=== PATIENT | female | born 1955 | race African-American/Black ===

== ENCOUNTER 2021-09-13 21:39 | Observation (INO) | payer MEDICARE ==
--- NOTE | 2021-09-13 22:15 | Emergency Department Report ---
ED Neuro Deficit HPI - General Chief Complaint: Neuro Symptoms/Deficit Stated Complaint: Slurred Speech Time Seen by Provider: 09/13/21 21:52 Source: patient Mode of arrival: Ambulatory Limitations: No Limitations - History of Present Illness Initial Comments: Patient is a 66-year-old female who is presenting after what sounds like a TIA. Patient states she was at the grocery store and the checkout despatch clerk asked her what her phone number was. Patient was having difficulty speaking and she has slurred speech. Both the patient and the document restorer noticed the sound of her voice sounds abnormal. Patient states that by time the paramedics came the patient was feeling much improved and her speech patterns had normalized. Denies any focal neurological deficits chest pain shortness of breath cough cold congestion fevers or chills. Patient went to a [facility] and was given the option to take an ambulance or have her son drive her private vehicle to the nearest emergency department. At this time patient has no complaints - Related Data Home Medications: Home Medications Medication Instructions Recorded Confirmed Last Taken AtorvaSTATin [Lipitor] 40 mg PO QHS 09/13/21 09/13/21 09/13/21 20:00 Dabigatran [Pradaxa] 75 mg PO BID 09/13/21 09/13/21 09/13/21 20:00 Insulin Aspart [Insulin Aspart 30 unit SQ QAM&QHS 09/13/21 09/13/21 09/13/21 08:00 Flexpen] Metformin HCl [metFORMIN] 1,000 mg PO BID 09/13/21 09/13/21 09/13/21 08:00 Sotalol HCl [Sotalol] 60 mg PO BID 09/13/21 09/13/21 09/13/21 20:00 Allergies/Adverse Reactions: Allergies Allergy/AdvReac Type Severity Reaction Status Date / Time No Known Allergies Allergy Verified 01/20/21 04:07 ED Review of Systems ROS: Stated complaint: Slurred Speech Other details as noted in HPI Comment: All other systems reviewed and negative ED Past Medical Hx - Past Medical History Previous Medical History?: Yes Hx Hypertension: Yes Hx CVA: No Hx Heart Attack/AMI: No Hx Congestive Heart Failure: No Hx Diabetes: Yes Hx Pulmonary Embolism: No Hx GERD: No Hx Liver Disease: No Hx Renal Disease: No Hx Sickle Cell Disease: No Hx Arthritis: No Hx Headaches / Migraines: No Hx Seizures: No Hx Kidney Stones: No Hx Psychiatric Treatment: No Hx Asthma: No Hx COPD: No Hx Tuberculosis: No Hx Dementia: No Hx HIV: No Additional medical history: Hypothyroidism, pick disease, hyperlipidemia - Surgical History Past Surgical History?: Yes Hx Coronary Stent: No Hx Open Heart Surgery: No Hx Pacemaker: No Hx Internal Defibrillator: No Hx Cholecystectomy: No Hx Appendectomy: No Hx Breast Surgery: No Additional Surgical History: section x2 - Social History Smoking Status: Never Smoker Substance Use Type: None - Medications Home Medications: Home Medications Medication Instructions Recorded Confirmed Last Taken Type AtorvaSTATin [Lipitor] 40 mg PO QHS 09/13/21 09/13/21 09/13/21 20:00 History Dabigatran [Pradaxa] 75 mg PO BID 09/13/21 09/13/21 09/13/21 20:00 History Insulin Aspart [Insulin Aspart 30 unit SQ QAM&QHS 09/13/21 09/13/21 09/13/21 08:00 History Flexpen] Metformin HCl [metFORMIN] 1,000 mg PO BID 09/13/21 09/13/21 09/13/21 08:00 History Sotalol HCl [Sotalol] 60 mg PO BID 09/13/21 09/13/21 09/13/21 20:00 History ED Neuro Physical Exam - General Limitations: No Limitations General appearance: alert, in no apparent distress Suspected Stroke: No - Head Head exam: Present: atraumatic, normocephalic - Eye Eye exam: Present: normal appearance - ENT ENT exam: Present: mucous membranes moist - Neck Neck exam: Present: normal inspection - Respiratory Respiratory exam: Present: normal lung sounds bilaterally. Absent: respiratory distress, wheezes, rales, rhonchi - Cardiovascular Cardiovascular Exam: Present: regular rate, normal rhythm. Absent: systolic murmur, diastolic murmur, rubs, gallop - GI/Abdominal GI/Abdominal exam: Present: soft, normal bowel sounds. Absent: distended, tenderness, guarding, rebound - Extremities Exam Extremities exam: Present: normal inspection - Back Exam Back exam: Present: normal inspection - Neurological Exam Neurological exam: Present: alert, oriented X3 - NIHSS Assessment Interval: Baseline 1a. Level of Consciousness: alert/keenly responsive 1b. LOC Questions: answers both correctly 1c. LOC Commands: performs tasks correctly 2. Best Gaze: normal 3. Visual: no visual loss 4. Facial Palsy: normal symmetrical movement 5b. Motor Arm Right: no drift 5a. Motor Arm Left: no drift 6a. Motor Leg Left: no drift 6b. Motor Leg Right: no drift 7. Limb Ataxia: absent 8. Sensory: normal 9. Best Language: no aphasia 10. Dysarthria: normal 11. Extinction/Inattention: no abnormality Total Score: 0 Stroke Severity: No Stroke Symptoms - Psychiatric Psychiatric exam: Present: normal affect, normal mood - Skin Skin exam: Present: warm, dry, intact, normal color. Absent: rash ED Course Vital Signs 09/13/21 09/13/21 09/13/21 21:46 22:06 22:25 Temperature 98.5 F Pulse Rate 73 Respiratory 18 Rate Blood Pressure 148/64 O2 Sat by Pulse 97 98 99 Oximetry 09/13/21 09/13/21 09/13/21 22:39 23:00 23:30 Temperature Pulse Rate 70 69 67 Respiratory 19 19 15 Rate Blood Pressure 184/71 137/47 116/43 O2 Sat by Pulse 100 96 98 Oximetry 09/14/21 00:00 Temperature Pulse Rate 69 Respiratory 14 Rate Blood Pressure 130/51 O2 Sat by Pulse 99 Oximetry - Lab Data Result diagrams: 09/13/21 22:58 09/13/21 22:58 Lab Results 09/13/21 09/13/21 09/13/21 Range/Units 21:57 22:58 22:58 WBC 6.8 (4.5-11.0) K/mm3 RBC 4.34 (3.65-5.03) M/mm3 Hgb 12.8 (10.1-14.3) gm/dl Hct 39.1 (30.3-42.9) % MCV 90 (79-97) fl MCH 30 (28-32) pg MCHC 33 (30-34) % RDW 13.7 (13.2-15.2) % Plt Count 242 (140-440) K/mm3 Lymph % (Auto) 31.3 (13.4-35.0) % [place] % (Auto) 7.6 H (0.0-7.3) % Eos % (Auto) 3.0 (0.0-4.3) % Baso % (Auto) 0.7 (0.0-1.8) % Lymph # (Auto) 2.1 (1.2-5.4) K/mm3 [place] # (Auto) 0.5 (0.0-0.8) K/mm3 Eos # (Auto) 0.2 (0.0-0.4) K/mm3 Baso # (Auto) 0.0 (0.0-0.1) K/mm3 Seg Neutrophils % 57.4 (40.0-70.0) % Seg Neutrophils # 3.9 (1.8-7.7) K/mm3 PT (12.2-14.9) Sec. INR (0.87-1.13) APTT (24.2-36.6) Sec. Sodium 138 (137-145) mmol/L Potassium 4.4 (3.6-5.0) mmol/L Chloride 101.4 (98-107) mmol/L Carbon Dioxide 23 (22-30) mmol/L Anion Gap 18 mmol/L BUN 13 (7-17) mg/dL Creatinine 0.6 (0.6-1.2) mg/dL Estimated GFR > 60 ml/min BUN/Creatinine Ratio 22 % Glucose 180 H (65-100) mg/dL POC Glucose 182 H (70-105) mg/dL Calcium 9.5 (8.4-10.2) mg/dL Urine Color (Yellow) Urine Turbidity (Clear) Urine pH (5.0-7.0) Ur Specific [place] (1.003-1.030) Urine Protein (Negative) mg/dL Urine Glucose (UA) (Negative) mg/dL Urine Ketones (Negative) mg/dL Urine Blood (Negative) Urine Nitrite (Negative) Urine Bilirubin (Negative) Urine Urobilinogen (<2.0) mg/dL Ur Leukocyte Esterase (Negative) Urine WBC (Auto) (0.0-6.0) /HPF Urine RBC (Auto) (0.0-6.0) /HPF U Epithel Cells (Auto) (0-13.0) /HPF Urine Bacteria (Auto) (Negative) /HPF Hyaline Casts /LPF Urine Mucus /HPF 09/13/21 09/13/21 Range/Units 22:58 Unknown WBC (4.5-11.0) K/mm3 RBC (3.65-5.03) M/mm3 Hgb (10.1-14.3) gm/dl Hct (30.3-42.9) % MCV (79-97) fl MCH (28-32) pg MCHC (30-34) % RDW (13.2-15.2) % Plt Count (140-440) K/mm3 Lymph % (Auto) (13.4-35.0) % [place] % (Auto) (0.0-7.3) % Eos % (Auto) (0.0-4.3) % Baso % (Auto) (0.0-1.8) % Lymph # (Auto) (1.2-5.4) K/mm3 [place] # (Auto) (0.0-0.8) K/mm3 Eos # (Auto) (0.0-0.4) K/mm3 Baso # (Auto) (0.0-0.1) K/mm3 Seg Neutrophils % (40.0-70.0) % Seg Neutrophils # (1.8-7.7) K/mm3 PT 19.7 H (12.2-14.9) Sec. INR 1.51 H (0.87-1.13) APTT 62.4 H* (24.2-36.6) Sec. Sodium (137-145) mmol/L Potassium (3.6-5.0) mmol/L Chloride (98-107) mmol/L Carbon Dioxide (22-30) mmol/L Anion Gap mmol/L BUN (7-17) mg/dL Creatinine (0.6-1.2) mg/dL Estimated GFR ml/min BUN/Creatinine Ratio % Glucose (65-100) mg/dL POC Glucose (70-105) mg/dL Calcium (8.4-10.2) mg/dL Urine Color Yellow (Yellow) Urine Turbidity Clear (Clear) Urine pH 5.0 (5.0-7.0) Ur Specific [place] 1.018 (1.003-1.030) Urine Protein 100 mg/dl (Negative) mg/dL Urine Glucose (UA) Neg (Negative) mg/dL Urine Ketones Neg (Negative) mg/dL Urine Blood Neg (Negative) Urine Nitrite Neg (Negative) Urine Bilirubin Neg (Negative) Urine Urobilinogen 2.0 (<2.0) mg/dL Ur Leukocyte Esterase Tr (Negative) Urine WBC (Auto) 8.0 H (0.0-6.0) /HPF Urine RBC (Auto) 9.0 (0.0-6.0) /HPF U Epithel Cells (Auto) 2.0 (0-13.0) /HPF Urine Bacteria (Auto) 1+ (Negative) /HPF Hyaline Casts 2 /LPF Urine Mucus 1+ /HPF 09/13/21 22:17 Sinus rhythm with a rate of 73. [place] normal intervals normal. No ST segment elevation or depressions. Time interpretation 2213 - Radiology Data CT HEAD WITHOUT CONTRAST INDICATION / CLINICAL INFORMATION: transient neuro deficit. TECHNIQUE: All CT scans at this location are performed using CT dose reduction for ALARA by means of automated exposure control. COMPARISON: None available. FINDINGS: BRAIN PARENCHYMA: No acute intracranial hemorrhage. No evidence of recent infarct. No mass effect or midline shift. Periventricular and subcortical white matter hypoattenuation, compatible with chronic small vessel ischemic changes. There is focal remote infarct of the right parietal lobe. Additional focal area of hypoattenuation within the right frontal lobe near the vertex also likely reflect remote infarct. VENTRICULAR SYSTEM/EXTRA-AXIAL SPACES: Mild age-related cerebral atrophy. No e xtra-axial fluid collection. ORBITS: [place] lenses are absent. SKELETAL SYSTEM/SOFT TISSUES: Normal bones and soft tissues. PARANASAL SINUSES/MASTOID AIR CELLS: No significant abnormality. ADDITIONAL FINDINGS: None. IMPRESSION: 1. Focal area of hypoattenuation within the right frontal lobe near the vertex is favored to reflect remote infarct, though this potentially could be subacute in age. Recommend correlation with MRI. 2. Otherwise, no acute intracranial abnormality. 3. Chronic small vessel ischemic disease and remote infarct in the right parietal lobe. Signer Name: Yves Olson MD Signed: 09/13/2021 11:00 PM Workstation Name: [id number] XR chest 1V ap INDICATION / CLINICAL INFORMATION: tia. COMPARISON: CTA from 01/20/2021 FINDINGS: SUPPORT DEVICES: None. HEART /PULMONARY VASCULATURE: Cardiac enlargement with pulmonary vasculature congestion. LUNGS / PLEURA: Mild bibasilar interstitial edema. No focal airspace consolidation. No sizable pleural effusion. No pneumothorax. ADDITIONAL FINDINGS: No significant additional findings. IMPRESSION: CHF/volume overload with mild pulmonary edema. Cannot exclude superimposed pneumonia. Signer Name: Yves Olson MD Signed: 09/13/2021 10:48 PM Workstation Name: [id number] - Medical Decision Making Patient is a 66-year-old female who is presenting with symptoms of a TIA. Patient's deficits have completely resolved at this time. Patient will be admitted for observation status for carotid Doppler and echocardiogram. Blood pressure elevated on arrival but is improve spontaneously. Critical care attestation.: If time is entered above; I have spent that time in minutes in the direct care of this critically ill patient, excluding procedure time. ED Disposition Clinical Impression: TIA (transient ischemic attack) UTI (urinary tract infection) Qualifiers: Urinary tract infection type: site unspecified Hematuria presence: without hematuria Qualified Code(s): N39.0 - Urinary tract infection, site not specified Diabetes mellitus Qualifiers: Diabetes mellitus type: type 2 Disposition: 09 ADMITTED INPATIENT Is pt being admited?: Yes Does the pt Need Aspirin: No Condition: Stable Instructions: Diabetes Mellitus Type 2 in Adults (ED) Time of Disposition: 00:15
--- NOTE | 2021-09-13 22:52 | XRay Report ---
XR chest 1V ap INDICATION / CLINICAL INFORMATION: tia. COMPARISON: CTA from 01/20/2021 FINDINGS: SUPPORT DEVICES: None. HEART /PULMONARY VASCULATURE: Cardiac enlargement with pulmonary vasculature congestion. LUNGS / PLEURA: Mild bibasilar interstitial edema. No focal airspace consolidation. No sizable pleura l effusion. No pneumothorax. ADDITIONAL FINDINGS: No significant additional findings. IMPRESSION: CHF/volume overload with mild pulmonary edema. Cannot exclude superimposed pneumonia. Signer Name: Yves Olson MD Signed: 09/13/2021 10:48 PM Workstation Name: [id number]
[2021-09-13 23:03] LABS: Bacteria,Urine 1+ /HPF (Negative); Bilirubin,Urine NEG (Negative); Blood,Urine NEG (Negative); Color,Urine Yellow (Yellow); Hyaline Casts,Urine 2 /LPF; Mucus,Urine 1+ /HPF
--- NOTE | 2021-09-13 23:04 | Cat Scan Report ---
CT HEAD WITHOUT CONTRAST INDICATION / CLINICAL INFORMATION: transient neuro deficit. TECHNIQUE: All CT scans at this location are performed using CT dose reduction for ALARA by means of automated exposure control. COMPARISON: None available. FINDINGS: BRAIN PARENCHYMA: No acute intracranial hemorrhage. No evidence of recent infarct. No mass effect or midline shift. Periventricular and subcortical white matter hypoattenuation, compatible with chronic small vessel ischemic changes. There is focal remote infarct of the right parietal lobe. Additional f ocal area of hypoattenuation within the right frontal lobe near the vertex also likely reflect remote infarct. VENTRICULAR SYSTEM/EXTRA-AXIAL SPACES: Mild age-related cerebral atrophy. No extra-axial fluid collec tion. ORBITS: [place] lenses are absent. SKELETAL SYSTEM/SOFT TISSUES: Normal bones and soft tissues. PARANASAL SINUSES/MASTOID AIR CELLS: No significant abnormality. ADDITIONAL FINDINGS: None. IMPRESSION: 1. Focal area of hypoattenuation within the right frontal lobe near the vertex is favored to reflect remote infarct, though this potentially could be subacute in age. Recommend correlation with MRI. 2. Otherwise, no acute intracranial abnormality. 3. Chronic small vessel ischemic disease and remote infarct in the right parietal lobe. Signer Name: Yves Olson MD Signed: 09/13/2021 11:00 PM Workstation Name: [id number]
[2021-09-13 23:11] LABS: Basophils % (Auto) 0.7 % (0.0-1.8); Eosinophils # (Auto) 0.2 K/mm3 (0.0-0.4); Hematocrit 39.1 % (30.3-42.9); Hemoglobin 12.8 gm/dl (10.1-14.3); Lymphocytes # (Auto) 2.1 K/mm3 (1.2-5.4); Lymphocytes % (Auto) 31.3 % (13.4-35.0); Mean Corpuscular HGB Conc 33 % (30-34); Mean Corpuscular Volume 90 fl (79-97); Monocytes # (Auto) 0.5 K/mm3 (0.0-0.8); Monocytes % (Auto) 7.6 % (0.0-7.3); Platelet Count 242 K/mm3 (140-440); Red Blood Count 4.34 M/mm3 (3.65-5.03); Red Cell Distribution Width 13.7 % (13.2-15.2)
[2021-09-13 23:26] LABS: INR 1.51 (0.87-1.13)
[2021-09-13 23:38] LABS: Partial Thromboplastin Time 62.4 Sec. (24.2-36.6)
[2021-09-13 23:58] LABS: BUN/Creatinine Ratio 22; Blood Urea Nitrogen 13 mg/dL (7-17); Calcium 9.5 mg/dL (8.4-10.2); Hemolysis Index 20
[2021-09-14] MEDS ORDERED: NITROFURANTOIN MONOHYD/M-CRYST 100 MG CAP PO ONE (00:17)
[2021-09-14] MEDS ORDERED: SODIUM CHLORIDE 0.9% 1000 ML 1,000 ML IV SCH (01:00)
[2021-09-14] MEDS ORDERED: ALBUTEROL 2.5 MG/3 ML NEBU IH PRN (01:00)
[2021-09-14] MEDS ORDERED: HYDROmorphone 1 MG/1 ML INJ IV PRN (01:00)
[2021-09-14] MEDS ORDERED: ACETAMINOPHEN 325 MG TAB PO PRN (01:00)
[2021-09-14] MEDS ORDERED: ONDANSETRON 4 MG/2 ML INJ IV PRN (01:00)
[2021-09-14] MEDS ORDERED: DEXTROSE 50% IN WATER (25GM) 50 ML SYRINGE IV PRN (01:00)
[2021-09-14] MEDS ORDERED: MORPHINE 2 MG/1 ML INJ IV PRN (01:00)
--- NOTE | 2021-09-14 01:11 | History and Physical Report ---
History of Present Illness Date of examination: 09/14/21 Date of admission: 09/14/21 Chief complaint: Slurred speech History of present illness: 66-year-old with history of hypertension and and diabetes was brought to the emergency room because of TIA. Patient was at the grocery store and the checkout pharmacy stock clerk asked her what her phone number was. Patient was having difficulty speaking and she has slurred speech. Both the patient and the jewelry store manager noticed the sound of her voice sounds abnormal. Patient states that by time the paramedics came the patient was feeling much improved and her speech patterns had normalized. Denies any focal neurological deficits chest pain shortness of breath cough cold congestion fevers or chills. Patient went to a [facility] and was given the option to take an ambulance or have her son drive her private vehicle to the nearest emergency department. At this time patient has no complaints Patient's deficits have completely resolved at this time. Patient will be admitted for observation status for carotid Doppler and echocardiogram, MRI of the brain and MRA of the brain and neck and neurology evaluation Med rec is done Past History Past Medical History: diabetes (Hypothyroidism, pick disease, hyperlipidemia), hypertension Medications and Allergies Allergies Allergy/AdvReac Type Severity Reaction Status Date / Time No Known Allergies Allergy Verified 01/20/21 04:07 Home Medications Medication Instructions Recorded Confirmed Last Taken Type AtorvaSTATin [Lipitor] 40 mg PO QHS 09/13/21 09/13/21 09/13/21 20:00 History Dabigatran [Pradaxa] 75 mg PO BID 09/13/21 09/13/21 09/13/21 20:00 History Insulin Aspart [Insulin Aspart 30 unit SQ QAM&QHS 09/13/21 09/13/21 09/13/21 08:00 History Flexpen] Metformin HCl [metFORMIN] 1,000 mg PO BID 09/13/21 09/13/21 09/13/21 08:00 History Sotalol HCl [Sotalol] 60 mg PO BID 09/13/21 09/13/21 09/13/21 20:00 History Review of Systems All systems: negative Neurological: change in speech, other (Slurred speech) Exam - Constitutional Vitals: Temp Pulse Resp BP Pulse Ox 98.5 F 69 14 130/51 99 09/13/21 21:46 09/14/21 00:00 09/14/21 00:00 09/14/21 00:00 09/14/21 00:00 General appearance: Present: no acute distress, well-nourished - EENT Eyes: Present: PERRL ENT: hearing intact, clear oral mucosa - Neck Neck: Present: supple, normal ROM - Respiratory Respiratory effort: normal Respiratory: bilateral: CTA - Cardiovascular Heart Sounds: Present: S1 & S2. Absent: rub, click - Extremities Extremities: pulses symmetrical, No edema Peripheral Pulses: within normal limits - Abdominal General gastrointestinal: Present: soft, non-tender, non-distended, normal bowel sounds Female genitourinary: Present: normal - Integumentary Integumentary: Present: clear, warm, dry - Musculoskeletal Musculoskeletal: gait normal, strength equal bilaterally - Psychiatric Psychiatric: appropriate mood/affect, intact judgment & insight - Neurologic Neurologic: CNII-XII intact, moves all extremities Results - Labs CBC & Chem 7: 09/13/21 22:58 09/13/21 22:58 Labs: Laboratory Last Values WBC 6.8 K/mm3 (4.5-11.0) 09/13/21 22:58 RBC 4.34 M/mm3 (3.65-5.03) 09/13/21 22:58 Hgb 12.8 gm/dl (10.1-14.3) 09/13/21 22:58 Hct 39.1 % (30.3-42.9) 09/13/21 22:58 MCV 90 fl (79-97) 09/13/21 22:58 MCH 30 pg (28-32) 09/13/21 22:58 MCHC 33 % (30-34) 09/13/21 22:58 RDW 13.7 % (13.2-15.2) 09/13/21 22:58 Plt Count 242 K/mm3 (140-440) 09/13/21 22:58 Lymph % (Auto) 31.3 % (13.4-35.0) 09/13/21 22:58 [place] % (Auto) 7.6 % (0.0-7.3) H 09/13/21 22:58 Eos % (Auto) 3.0 % (0.0-4.3) 09/13/21 22:58 Baso % (Auto) 0.7 % (0.0-1.8) 09/13/21 22:58 Lymph # (Auto) 2.1 K/mm3 (1.2-5.4) 09/13/21 22:58 [place] # (Auto) 0.5 K/mm3 (0.0-0.8) 09/13/21 22:58 Eos # (Auto) 0.2 K/mm3 (0.0-0.4) 09/13/21 22:58 Baso # (Auto) 0.0 K/mm3 (0.0-0.1) 09/13/21 22:58 Seg Neutrophils % 57.4 % (40.0-70.0) 09/13/21 22:58 Seg Neutrophils # 3.9 K/mm3 (1.8-7.7) 09/13/21 22:58 PT 19.7 Sec. (12.2-14.9) H 09/13/21 22:58 INR 1.51 (0.87-1.13) H 09/13/21 22:58 APTT 62.4 Sec. (24.2-36.6) H* 09/13/21 22:58 Sodium 138 mmol/L (137-145) 09/13/21 22:58 Potassium 4.4 mmol/L (3.6-5.0) 09/13/21 22:58 Chloride 101.4 mmol/L (98-107) 09/13/21 22:58 Carbon Dioxide 23 mmol/L (22-30) 09/13/21 22:58 Anion Gap 18 mmol/L 09/13/21 22:58 BUN 13 mg/dL (7-17) 09/13/21 22:58 Creatinine 0.6 mg/dL (0.6-1.2) 09/13/21 22:58 Estimated GFR > 60 ml/min 09/13/21 22:58 BUN/Creatinine Ratio 22 % 09/13/21 22:58 Glucose 180 mg/dL (65-100) H 09/13/21 22:58 POC Glucose 182 mg/dL (70-105) H 09/13/21 21:57 Calcium 9.5 mg/dL (8.4-10.2) 09/13/21 22:58 Urine Color Yellow (Yellow) 09/13/21 Unknown Urine Turbidity Clear (Clear) 09/13/21 Unknown Urine pH 5.0 (5.0-7.0) 09/13/21 Unknown Ur Specific [place] 1.018 (1.003-1.030) 09/13/21 Unknown Urine Protein 100 mg/dl mg/dL (Negative) 09/13/21 Unknown Urine Glucose (UA) Neg mg/dL (Negative) 09/13/21 Unknown Urine Ketones Neg mg/dL (Negative) 09/13/21 Unknown Urine Blood Neg (Negative) 09/13/21 Unknown Urine Nitrite Neg (Negative) 09/13/21 Unknown Urine Bilirubin Neg (Negative) 09/13/21 Unknown Urine Urobilinogen 2.0 mg/dL (<2.0) 09/13/21 Unknown Ur Leukocyte Esterase Tr (Negative) 09/13/21 Unknown Urine WBC (Auto) 8.0 /HPF (0.0-6.0) H 09/13/21 Unknown Urine RBC (Auto) 9.0 /HPF (0.0-6.0) 09/13/21 Unknown U Epithel Cells (Auto) 2.0 /HPF (0-13.0) 09/13/21 Unknown Urine Bacteria (Auto) 1+ /HPF (Negative) 09/13/21 Unknown Hyaline Casts 2 /LPF 09/13/21 Unknown Urine Mucus 1+ /HPF 09/13/21 Unknown - Imaging and Cardiology CT Scan - head: report reviewed Assessment and Plan VTE prophylaxis?: Chemical Plan of care discussed with patient/family: Yes - Patient Problems (1) TIA (transient ischemic attack) Status: Acute Plan to address problem: Admit the patient to the medical telemetry. NPO. Aspirin 81 mg p.o. daily. Lipitor 80 mg p.o. daily. Pradaxa 75 mg p.o. twice daily. PT OT any speech evaluation. MRI of the brain and MRA of the brain and neck with and without contrast. Neurology evaluation and echocardiogram (2) A-fib Status: Acute Plan to address problem: Stable. Patient is on Pradaxa 75 mg p.o. twice daily. Sotalol 60 mg p.o. twice daily. echocardiogram. Outpatient follow-up with cardiology (3) Diabetes mellitus Status: Chronic Qualifiers: Diabetes mellitus type: type 2 Plan to address problem: Humalog insulin sliding scale with moderate dose coverage Accu-Chek before meals and at bedtime. Diabetic education. We will continue the home medication (4) Hypertension Status: Chronic Plan to address problem: Sotalol 60 mg p.o. twice daily. We will monitor the blood pressure closely (5) Hypothyroidism Status: Acute Plan to address problem: Stable. We will continue the home medication (6) DVT prophylaxis Status: Acute Plan to address problem: Pradaxa 75 mg p.o. twice daily for the DVT prophylaxis. Pepcid 20 mg IV every 12 hours for GI prophylaxis. Patient is a full code
[2021-09-14 01:44] LABS: Chol/HDL Ratio 4.28 %
[2021-09-14] MEDS: INSULIN LISPRO 100 UNIT/ML SUB-Q SCH ×3 (06:56→18:01)
[2021-09-14] MEDS: IPRATROPIUM/ALBUTEROL SULFATE 3 ML AMPUL.NEB IH SCH ×4 (08:50→21:23)
[2021-09-14] MEDS ORDERED: NON-FORMULARY EACH (Sotalol Hcl [Sotalol] 120 MG Tablet) PO SCH (10:00)
[2021-09-14] MEDS ORDERED: LORazepam 2 MG/ML VIAL IV NR (10:30)
[2021-09-14] MEDS: FAMOTIDINE 20 MG/2 ML INJ IV SCH ×2 (10:40→21:12)
--- NOTE | 2021-09-14 11:03 | Consultation ---
History of Present Illness Consult date: 09/14/21 Reason for Consult: slured speech yesterday 8 pm History of present illness: Slurred speech History of present illness: 66-year-old with history of hypertension and and diabetes was brought to the emergency room because of TIA. Patient was at the grocery store and the checkout supervisor telephone clerks asked her what her phone number was. Patient was having difficulty speaking and she has slurred speech. Both the patient and the traveling storekeeper noticed the sound of her voice sounds abnormal. Patient states that by time the paramedics came the patient was feeling much improved and her speech patterns had normalized. Denies any focal neurological deficits chest pain shortness of breath cough cold congestion fevers or chills. Patient went to a [facility] and was given the option to take an ambulance or have her son drive her private vehicle to the nearest emergency department. At this time patient has no complaints Patient's deficits have completely resolved at this time. Patient was admitted for observation status for carotid Doppler and echocardiogram, MRI of the brain and MRA of the brain and neck pt. is with hx of AF on pradexa taking her medication daily she is on ASA 81 mg daily , she is taking her lipitor intermittently no smoking hx on recreational drug nor drinking CT brain in ER is remarkable for right Frontal hypo-attenuation MRI brain is pending -CTA brain and neck not done yesterday-- will order Past History Past Medical History: diabetes (Hypothyroidism, pick disease, hyperlipidemia), hypertension Medications and Allergies Allergies Allergy/AdvReac Type Severity Reaction Status Date / Time No Known Allergies Allergy Verified 01/20/21 04:07 Home Medications Medication Instructions Recorded Confirmed Last Taken Type AtorvaSTATin [Lipitor] 40 mg PO QHS 09/13/21 09/13/21 09/13/21 20:00 History Dabigatran [Pradaxa] 75 mg PO BID 09/13/21 09/13/21 09/13/21 20:00 History Insulin Aspart [Insulin Aspart 30 unit SQ QAM&QHS 09/13/21 09/13/21 09/13/21 08:00 History Flexpen] Metformin HCl [metFORMIN] 1,000 mg PO BID 09/13/21 09/13/21 09/13/21 08:00 History Sotalol HCl [Sotalol] 60 mg PO BID 09/13/21 09/13/21 09/13/21 20:00 History Review of Systems All systems: negative Neurological: change in speech, other (Slurred speech) Past History Past Medical History: diabetes (Hypothyroidism, pick disease, hyperlipidemia), hypertension Medications and Allergies Allergies Allergy/AdvReac Type Severity Reaction Status Date / Time No Known Allergies Allergy Verified 01/20/21 04:07 Home Medications Medication Instructions Recorded Confirmed Last Taken Type AtorvaSTATin [Lipitor] 40 mg PO QHS 09/13/21 09/13/21 09/13/21 20:00 History Dabigatran [Pradaxa] 75 mg PO BID 09/13/21 09/13/21 09/13/21 20:00 History Insulin Aspart [Insulin Aspart 30 unit SQ QAM&QHS 09/13/21 09/13/21 09/13/21 08:00 History Flexpen] Metformin HCl [metFORMIN] 1,000 mg PO BID 09/13/21 09/13/21 09/13/21 08:00 History Sotalol HCl [Sotalol] 60 mg PO BID 09/13/21 09/13/21 09/13/21 20:00 History Active Meds: Active Medications Acetaminophen (Acetaminophen 325 Mg Tab) 650 mg PO Q4H PRN PRN Reason: Pain MILD(1-3)/Fever >100.5/FLORES Albuterol (Albuterol 2.5 Mg/3 Ml Nebu) 2.5 mg IH Q4HRT PRN PRN Reason: Shortness Of Breath Albuterol/Ipratropium (Ipratropium/Albuterol Sulfate 3 Ml Ampul.Neb) 1 ampul IH Q6HRT LADONNA Last Admin: 09/14/21 08:50 Dose: 1 ampul Documented by: Aspirin (Aspirin 81 Mg Tab Chew) 81 mg PO QDAY [facility] Atorvastatin Calcium (Atorvastatin 40 Mg Tab) 80 mg PO QHS [facility] Dabigatran (Dabigatran 75 Mg Cap) 75 mg PO BID LADONNA; Protocol Dextrose (Dextrose 50% In Water (25gm) 50 Ml Syringe) 50 ml IV Q30MIN PRN; Protocol PRN Reason: Hypoglycemia Famotidine (Famotidine 20 Mg/2 Ml Inj) 20 mg IV BID [facility] Hydromorphone HCl (Hydromorphone 1 Mg/1 Ml Inj) 0.5 mg IV Q3H PRN PRN Reason: Pain , Severe (7-10) Sodium Chloride (Nacl 0.9% 1000 Ml) 1,000 mls @ 100 mls/hr IV DIRECT LADONNA Insulin Human Lispro (Insulin Lispro 100 Unit/Ml) 0 unit SUB-Q Q6HR [facility]; Protocol Last Admin: 09/14/21 06:56 Dose: 2 unit Documented by: Lorazepam (Lorazepam 2 Mg/Ml Vial) 2 mg IV PATTERN DRUM MAKER NR Stop: 09/14/21 15:30 Morphine Sulfate (Morphine 2 Mg/1 Ml Inj) 2 mg IV Q4H PRN PRN Reason: Pain, Moderate (4-6) Ondansetron HCl (Ondansetron 4 Mg/2 Ml Inj) 4 mg IV Q8H PRN PRN Reason: Nausea And Vomiting Sodium Chloride (Sodium Chloride 0.9% 10 Ml Flush Syringe) 10 ml IV BID LADONNA Sodium Chloride (Sodium Chloride 0.9% 10 Ml Flush Syringe) 10 ml IV PRN PRN PRN Reason: LINE FLUSH Sotalol HCl (Sotalol 80 Mg Tab) 60 mg PO BID [facility] Physical Examination - Vital Signs Vital Signs: Vital Signs Temp Pulse Resp BP Pulse Ox 98.5 F 73 18 148/64 97 09/13/21 21:46 09/13/21 21:46 09/13/21 21:46 09/13/21 21:46 09/13/21 21:46 - Constitutional General appearance: comfortable - EENT EENT: Present: PERRL, mucous membranes moist - Respiratory Respiratory: Present: chest non-tender, lungs clear, rhonchi - Cardiovascular Cardiovascular: Present: regular rate, normal S1, normal S2 Extremities: Present: no peripheral edema bilatateraly, no clubbing, cyanosis - Gastrointestinal Gastrointestinal: Present: normoactive bowel sounds - Integumentary Integumentary: Present: normal - Neurologic Cranial nerve examination: PERRL, EOMI, intact Speech examination: intact Sensorimotor examination: intact Detailed motor examination: grossly full strength in - Level of Consciousness 1a. Level of Consciousness: alert/keenly responsive - LOC Questions 1b. LOC Questions: answers both correctly - LOC Command 1c. LOC Commands: performs tasks correctly - Best Gaze 2. Best Gaze: normal - Visual 3. Visual: no visual loss - Facial Palsy 4. Facial Palsy: normal symmetrical movement - Motor Arm 5a. Motor Arm Left: no drift 5b. Motor Arm Right: no drift - Motor Leg 6a. Motor Leg Left: no drift 6b. Motor Leg Right: no drift - Limb Ataxia 7. Limb Ataxia: absent - Sensory 8. Sensory: normal - Best Language 9. Best Language: no aphasia - Dysarthria 10. Dysarthria: normal - Extinction and Inattention 11. Extinction/Inattention: no abnormality - Scoring Total Score: 0 Stroke Severity: No Stroke Symptoms Results - Laboratory Findings CBC and BMP: 09/13/21 22:58 09/13/21 22:58 Abnormal Lab Findings: Abnormal Labs 09/13/21 09/13/21 09/13/21 21:57 22:58 22:58 Lucas % (Auto) 7.6 H PT INR APTT Glucose 180 H POC Glucose 182 H Hemoglobin A1c Cholesterol LDL Cholesterol Direct Urine WBC (Auto) 09/13/21 09/13/21 09/13/21 22:58 22:58 22:58 Lucas % (Auto) PT 19.7 H INR 1.51 H APTT 62.4 H* Glucose POC Glucose Hemoglobin A1c 7.6 H Cholesterol 223 H LDL Cholesterol Direct 151 H Urine WBC (Auto) 09/13/21 09/14/21 Unknown 06:40 Lucas % (Auto) PT INR APTT Glucose POC Glucose 187 H Hemoglobin A1c Cholesterol LDL Cholesterol Direct Urine WBC (Auto) 8.0 H Assessment and Plan Assessment and Plan 66-year-old with history of hypertension and and diabetes was brought to the emergency room because of TIA. Patient was at the grocery store and the checkout supervisor telephone clerks asked her what her phone number was. Patient was having difficulty speaking and she has slurred speech. Both the patient and the traveling storekeeper noticed the sound of her voice sounds abnormal. Patient states that by time the paramedics came the patient was feeling much improved and her speech patterns had normalized. Denies any focal neurological deficits chest pain shortness of breath cough cold congestion fevers or chills. Patient went to a [facility] and was given the option to take an ambulance or have her son drive her private vehicle to the nearest emergency department. 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 Patient is on Pradaxa 75 mg p.o. twice daily. - Sotalol 60 mg p.o. twice daily. -echocardiogram. - -Outpatient follow-up with cardiology -cardiac enzymes. # Diabetes mellitus -Humalog insulin sliding scale with moderate dose coverage Accu-Chek before meals and at bedtime. - Diabetic education. - We will continue the home medication -A1C#7.6 need better control<7 # HLP -LDL#151- need better control<70 -on lipitor 40 mg daily -poor compliance with medication # Hypertension -Sotalol 60 mg p.o. twice daily. -We will monitor the blood pressure closely # Hypothyroidism -Stable. We will continue the home medication # DVT prophylaxis -Pradaxa 75 mg p.o. twice daily for the DVT prophylaxis. - Pepcid 20 mg IV every 12 hours for GI prophylaxis. - Patient is a full code Will follow
--- NOTE | 2021-09-14 13:04 | Event Note ---
Date: 09/14/21 The patient was seen and evaluated this morning and found to be hemodynamically stable. The patient is pending imaging for TIA/stroke work-up. The patient is being evaluated by neurology.
--- NOTE | 2021-09-14 13:27 | Electrocardiograph Report ---
[facility] Test Date: 2021-09-13 Test Time: 22:11:11 Pat Name: FREIDA RASHEED Department: Room: A468 1 Gender: F Distribution Superintendent: Miladis MELENDREZ : 1955 Requested By: CARLOS FUENTES Order Number: [id number] Reading MD: Sarath Carrasco Measurements Intervals [place] Rate: 73 P: 44 AL: 168 QRS: 5 QRSD: 88 T: 73 QT: 413 QTc: 455 Interpretive Statements Sinus rhythm Low voltage, precordial leads Compared to ECG 01/21/2021 09:56:06 Low QRS voltage now present Electronically Signed On 09-14-2021 13:26:38 EST by Sarath Carrasco
--- NOTE | 2021-09-14 14:01 | Magnetic Resonance Report ---
NONENHANCED MR SCAN OF THE BRAIN: INDICATION / CLINICAL INFORMATION: stroke. TECHNIQUE: Multiplanar, multisequence MR images of the brain obtained. COMPARISON: CT scan of the head from 09/13/2021 FINDINGS: BRAIN / INTRACRANIAL CONTENTS: Abnormal MRI scan Subacute nonhemorrhagic border zone infarction in the right temporal occipital region; punctate areas of subacute ischemia in the right frontal lobe and in the high convexity border zone. No hemorrhagic changes. Chronic changes in the maximino bilaterally, right putamen, deep hemispheric white matter due to chronic small vessel disease. Very subtle signal intensity changes are seen in the midbrain along the medial surface of the cerebra l peduncles, thalami and hypothalamus. I am unable to confirm these findings. This could be artifactu al. CRANIOCERVICAL JUNCTION: No significant abnormality. ORBITS: No significant abnormality of visualized orbits. SINUSES / MASTOIDS: No significant abnormality of visualized sinuses and mastoid air cells. ADDITIONAL FINDINGS: None. IMPRESSION: 1. Subacute border zone ischemic changes in the right temporal occipital border zone, right frontal b order zone and in the right high convexity border zone; no hemorrhagic changes MRA of the brain: Left vertebral artery continues as basilar artery; right vertebral artery ends in the right PICA Basilar artery normal Posterior cerebral arteries normal Internal carotid arteries: Right internal carotid artery normal from skull base to terminus; minimal atherosclerotic changes in the cavernous segment of left internal carotid artery; left internal carot id artery terminus normal Anterior cerebral arteries: Normal Middle cerebral arteries: Normal IMPRESSION: Normal MRA of the brain Signer Name: Renata Baxter MD Signed: 09/14/2021 1:56 PM Workstation Name: [facility]
[2021-09-14] MEDS: ASPIRIN 81 MG TAB CHEW PO SCH (15:30)
[2021-09-14] MEDS: DABIGATRAN 75 MG CAP PO SCH ×2 (15:30→21:11)
[2021-09-15] MEDS: INSULIN LISPRO 100 UNIT/ML SUB-Q SCH ×2 (00:05→13:29)
[2021-09-15] MEDS: IPRATROPIUM/ALBUTEROL SULFATE 3 ML AMPUL.NEB IH SCH ×3 (03:05→13:19)
[2021-09-15 08:56] VITALS: BP 214/83
--- NOTE | 2021-09-15 09:18 | Cat Scan Report ---
CTA NECK WITH CONTRAST 09/15/2021 INDICATION / CLINICAL INFORMATION: cva. COMPARISON: None. TECHNIQUE: Routine CTA of the neck is performed. 3-D/MIP reformats were postprocessed. Percentage st enosis is determined by direct quantitative measurements of diseased internal carotid artery diameter compared with normal distal internal carotid artery reference segments or by criteria similar to ROBERT CET where applicable. All CT scans at this location are performed using CT dose reduction for ALARA b y means of automated exposure control. CONTRAST: 100 ml of contrast FINDINGS: Carotid bifurcations: Prominent bilateral atherosclerotic changes are present at the carotid bifurcat ions. On the right, there is high-grade stenosis at the origin of the internal carotid artery, which appears to be greater than 90%. On the left, there is high-grade stenosis at the origin of the [facility] [facility] al carotid artery, which appears to be greater than 90%. On the left, a residual lumen is difficult t o identify. There is opacification of the cervical internal carotid artery, which is usually an indic ation of patency, although can also be an indication of retrograde flow. Carotid arteries: No definite abnormality Cervical vertebral arteries: Vertebral artery opacification is confirmed, with no evidence of vertebr al artery occlusion or stenosis. However, atherosclerotic stenosis is present in the left subclavian artery at the level of the origin of the left vertebral artery. Aortic arch: There is significant atherosclerotic change in the proximal vertebral artery, consistent with high-grade stenosis both at its origin, at the level of the origin of the vertebral artery, pos sibly in the vicinity of the left pulmonary apex. Subclavian artery on the right demonstrates atheros clerotic calcification, with no definite stenosis. Prominent ventral vertebral body osteophyte formation is present from C2 through C7, in a pattern con sistent with diffuse neoplastic skeletal hypertrophy. IMPRESSION: Bilateral high-grade proximal ICA stenosis as described above. Left subclavian artery stenosis with probable involvement of the left vertebral artery origin. Signer Name: Tyler Carrero MD Signed: 09/15/2021 9:14 AM Workstation Name: [id number]
--- NOTE | 2021-09-15 09:22 | Cat Scan Report ---
CTA HEAD WITH CONTRAST 09/15/2021 HISTORY: CVA. COMPARISON: None. TECHNIQUE: All CT scans at this location are performed using CT dose reduction for ALARA by means of automated exposure control.. 3-D/MIP reformats postprocessed. Percentage stenosis is determined by d irect quantitative measurements of diseased internal carotid artery diameter compared with normal dis farshad internal carotid artery reference segments or by criteria similar to NASCET where applicable. CONTRAST: 100 ml of contrast FINDINGS: CTA HEAD: Intracranial vertebral arteries: Left distal vertebral artery demonstrates some atherosclerotic calci fication and mild narrowing and irregularity. The right vertebral artery is hypoplastic and appears t o end at the level of PICA, a normal variant Basilar artery: Basilar artery is relatively hypoplastic on a developmental basis. There are bilatera l posterior communicating arteries present, consistent with normal anatomic variation. Posterior cerebral arteries: No significant abnormality. Intracranial internal carotid arteries: Atherosclerotic calcification with no evidence of occlusion o r stenosis Anterior cerebral arteries: No significant abnormality. Middle cerebral arteries: No significant abnormality. Dural venous sinuses:Not optimally opacified. No significant abnormality. Additional findings: None. IMPRESSION: 1. No evidence of large vessel occlusion. Signer Name: Tyler Carrero MD Signed: 09/15/2021 9:17 AM Workstation Name: [id number]
[2021-09-15] MEDS: DABIGATRAN 75 MG CAP PO SCH (10:25)
[2021-09-15] MEDS: ASPIRIN 81 MG TAB CHEW PO SCH (10:26)
[2021-09-15] MEDS: FAMOTIDINE 20 MG/2 ML INJ IV SCH (10:26)
--- NOTE | 2021-09-15 11:31 | Progress Note ---
Assessment and Plan Assessment and Plan 66-year-old with history of hypertension and and diabetes was brought to the emergency room because of TIA. Patient was at the grocery store and the checkout entry clerk asked her what her phone number was. Patient was having difficulty speaking and she has slurred speech. Both the patient and the assistant store manager operations noticed the sound of her voice sounds abnormal. Patient states that by time the paramedics came the patient was feeling much improved and her speech patterns had normalized. Denies any focal neurological deficits chest pain shortness of breath cough cold congestion fevers or chills. Patient went to a [facility] and was given the option to take an ambulance or have her son jesusita delacruze her private vehicle to the nearest emergency department. 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 atherosclerosis and narow both vertebral A. , bilteral ICA stenosis>90% at Biforcation -restarted back on her medications -ASA 81 mg , lipitor 80 mg daily and Pradexa -LDL#151 -A1C#7.6 -MRI brain is remarkable for right tempo-occipital , right frontal and right convexity -echo is with impaired relaxation LV,with EF#55-60% - cardiac monitering AF -PT/ST # A-fib -Stable. Patient is on Pradaxa 75 mg p.o. twice daily. - Sotalol 60 mg p.o. twice daily. -echocardiogram. - -Outpatient follow-up with cardiology -cardiac enzymes. # Diabetes mellitus -Humalog insulin sliding scale with moderate dose coverage Accu-Chek before meals and at bedtime. - Diabetic education. - We will continue the home medication -A1C#7.6 need better control<7 # HLP -LDL#151- need better control<70 -on lipitor 80 mg daily -poor compliance with medication # Hypertension -Sotalol 60 mg p.o. twice daily. -We will monitor the blood pressure closely # Hypothyroidism -Stable. We will continue the home medication # DVT prophylaxis -Pradaxa 75 mg p.o. twice daily for the DVT prophylaxis. - Pepcid 20 mg IV every 12 hours for GI prophylaxis. - Patient is a full code PLAN 1- maintain current medications-ASA 81 Plus Pradexa currently on 75 mg bid with elevated INR ,and Lipitor 80 mg 2- vascular surgery to see --all acute event are in right hemisphere --with suggestion it is mostly coming from right subclavian/ICA right side ,unlikley the heart 3-cardiology follow up Findings D/W pt. will sign off Subjective Date of service: 09/15/21 Principal diagnosis: slurred speech improved Interval history: -doing well walking around in her room -had CTA brain and neck significant subclavian stenosis and >90% bialteral ICA at biforcation -LDL#151 -A1C#7.6 -MRI is noted with at least 2 subacute CVA Objective - Vital Sign Vital Signs - 12hr 09/15/21 09/15/21 09/15/21 00:27 05:32 07:57 Temperature 98.5 F 97.7 F 98.5 F Pulse Rate 73 74 84 Pulse Rate [ Anterior Bilateral Throughout] Respiratory 18 18 20 Rate Respiratory Rate [Anterior Bilateral Throughout] Blood Pressure 152/63 178/78 214/83 O2 Sat by Pulse 95 95 96 Oximetry 09/15/21 09/15/21 09:11 09:14 Temperature Pulse Rate Pulse Rate [ 72 Anterior Bilateral Throughout] Respiratory Rate Respiratory 18 Rate [Anterior Bilateral Throughout] Blood Pressure O2 Sat by Pulse 98 Oximetry - General Apperance Constitutional: comfortable - EENT EENT: PERRL, mucous membranes moist - Respiratory Respiratory: chest non-tender, lungs clear, rhonchi - Cardiovascular Cardiovascular: other (AF) Extremities: no peripheral edema bilat, no clubbing, cyanosis - Gastrointestinal Gastrointestinal: normoactive bowel sounds - Integumentary Integumentary: normal - Neurologic Cranial nerve examination: PERRL, EOMI, intact Speech examination: intact Detailed motor examination: grossly full strength in - Laboratory Findings CBC and BMP: 09/13/21 22:58 09/13/21 22:58 Abnormal Lab Findings: Abnormal Labs 09/13/21 09/13/21 09/13/21 21:57 22:58 22:58 White % (Auto) 7.6 H PT INR APTT Glucose 180 H POC Glucose 182 H Hemoglobin A1c Cholesterol LDL Cholesterol Direct Urine WBC (Auto) 09/13/21 09/13/2121 22:58 22:58 22:58 White % (Auto) PT 19.7 H INR 1.51 H APTT 62.4 H* Glucose POC Glucose Hemoglobin A1c 7.6 H Cholesterol 223 H LDL Cholesterol Direct 151 H Urine WBC (Auto) 09/13/21 09/14/21 09/14/21 Unknown 06:40 11:58 White % (Auto) PT INR APTT Glucose POC Glucose 187 H 211 H Hemoglobin A1c Cholesterol LDL Cholesterol Direct Urine WBC (Auto) 8.0 H 09/14/21 09/14/21 09/15/21 16:44 22:03 08:30 White % (Auto) PT INR APTT Glucose POC Glucose 347 H 269 H 282 H Hemoglobin A1c Cholesterol LDL Cholesterol Direct Urine WBC (Auto)
[2021-09-15] MEDS ORDERED: NON-FORMULARY EACH (Insulin Aspart [Insulin Aspart Flexpen] 100 UNIT/ML Insuln.Pen) SQ SCH (11:45)
[2021-09-15] MEDS ORDERED: NON-FORMULARY EACH (Metformin Hcl [Metformin] 1,000 MG Tablet) PO SCH (11:45)
[2021-09-15] MEDS ORDERED: INSULIN LISPRO 100 UNIT/ML SUB-Q SCH (12:00)
--- NOTE | 2021-09-15 12:22 | Discharge Summary ---
Providers - Providers Date of Admission: 09/14/21 01:00 Date of discharge: 09/15/21 Attending physician: CAROLINE RIVERA MD 09/14/21 01:00 Consult to Physician [CONS] Routine Comment: Consulting Provider: JOSELINE ALEXIS Physician Instructions: Reason For Exam: tia 09/14/21 01:01 Consult to Dietitian/Nutrition [CONS] Routine Physician Instructions: Reason For Exam: Reason for Consult: Diet education 09/14/21 08:11 Speech Therapy Evaluation and Treat [CONS] Routine Reason For Exam: Assess after TIA/stroke Primary care physician: NEURODIAGNOSTIC TECH Hospitalization Reason for admission: TIA Condition: Stable Pertinent studies: Reviewed. Procedures: None. Hospital course: Patient is a 66-year-old female with past medical history of hypertension, insulin dependent diabetes, A. fib on Pradaxa, hyperlipidemia, and hypothyroidism who presented with TIA. Neurology was consulted. The patient received ASA 325 mg in the ED. The patient underwent CT brain Noncon and MRI brain that were found to be negative. CTA head and neck revealed bilateral high-grade proximal ICA stenosis and a left subclavian artery stenosis with probable involvement of the left vertebral artery origin. Patient was evaluated by speech therapy and cleared. The patient will need to be evaluated by vascular surgery in the outpatient setting (by [facility]). The patient should also follow with her primary care provider within 7 days. Patient e xpressed understanding. Disposition: HOME / SELF CARE / HOMELESS Final Discharge Diagnosis (Prints w/discharge instructions): TIA, high-grade bilateral ICA stenosis, hypertension, insulin dependent diabetes, A. fib on Pradaxa, hyperlipidemia, and hypothyroidism Time spent for discharge: 45 min Core Measure Documentation - Palliative Care Palliative Care/ Comfort Measures: Not Applicable - Core Measures Any of the following diagnoses?: stroke, history only - VTE Discharge Requirements Deep Vein Thrombosis/Pulmonary Embolism Present on Admission: No Has pt received <5 days of overlap therapy or INR<2.0: No (Not indicated) Anticoagulant overlap therapy prescribed at discharge: No Contraindication No Overlap Therapy order at DC: Not Indicated - Acute PA Discharge Requirements Aspirin at discharge: Yes NALLELY/ARB for LVSD if EF <40%: No Reason for no NALLELY/ARB: Medical contraindication (Not indicated) Beta niki at discharge: Yes Statin for LDL = or >100 mg/dl on DC: Yes - Heart Failure Discharge Requirements NALLELY/ARB for LVSD if EF <40%: Not Applicable Reason for no NALLELY/ARB: Medical contraindication (Not indicated) Beta niki at discharge: Yes - Stroke Discharge Requirements Statin for LDL = or >70 mg/dl on DC: Yes Anticoag for atrial fib/atrial flutter: Not Applicable Reason for no anticoag for AF/F on DC: Not Indicated Antithrombotic for ischemic stroke: Yes Exam - Constitutional Vitals: Temp Pulse Resp BP Pulse Ox 98.5 F 72 18 214/83 98 09/15/21 07:57 09/15/21 09:11 09/15/21 09:11 09/15/21 07:57 09/15/21 09:14 General appearance: Present: no acute distress, well-nourished - EENT Eyes: Present: PERRL, EOM intact ENT: hearing intact, clear oral mucosa, dentition normal - Neck Neck: Present: supple, normal ROM - Respiratory Respiratory effort: normal Respiratory: bilateral: CTA - Cardiovascular Rhythm: regular Heart Sounds: Present: S1 & S2 - Extremities Extremities: no ischemia, pulses intact, pulses symmetrical, No edema, normal temperature, normal color, Full ROM Peripheral Pulses: within normal limits - Abdominal General gastrointestinal: Present: soft, non-tender, non-distended, normal bowel sounds Female genitourinary: Present: deferred - Rectal Rectal Exam: deferred - Integumentary Integumentary: Present: clear, warm, dry - Musculoskeletal Musculoskeletal: strength equal bilaterally - Psychiatric Psychiatric: appropriate mood/affect, intact judgment & insight, memory intact, cooperative - Neurologic Neurologic: CNII-XII intact, moves all extremities - Allied Health Allied health notes reviewed: nursing Plan Activity: no restrictions Diet: low cholesterol, low salt, diabetic Care Plan Goals: Patient is safe to discharge home. Assessment: Patient presented with TIA. Patient underwent imaging CT head Noncon, MRI brain, and TTE that were all found to be within normal limits. CTA head and neck revealed bilateral high-grade proximal ICA stenosis and a left subclavian artery stenosis with probable involvement of the left vertebral artery origin. On the right, there is high-grade stenosis at the origin of the internal carotid artery, which appears to be greater than 90%. On the left, there is high-grade stenosis at the origin of the internal carotid artery, which appears to be greater than 90%. Patient was counseled about medication compliance, and she expressed understanding. The patient will need to be evaluated by vascular surgery in the outpatient setting (by [facility]). The patient should also follow with her primary care provider within 7 days. Patient will be discharged today safely home. Follow up with: PRIMARY CARE, [Primary Care Provider] - 7 Days Prescriptions: AtorvaSTATin [Lipitor] 80 mg PO QHS #30 tablet Aspirin [Aspirin BABY CHEW TAB] 81 mg PO QDAY #30 tab.chew
[2021-09-15] MEDS ORDERED: metFORMIN 500 MG TAB PO SCH (17:00)
== END 2021-09-15 13:15 | disposition home or self-care (01) ==
LOC: ED 21:39 → 4A 09-14 01:00
PROVIDERS: ADMIT Hospitalist; ATTEND Student in an Organized Health Care Education/Training Program
DX: G45.9 Transient cerebral ischemic attack, unspecified (principal); I48.91 Unspecified atrial fibrillation; I10 Essential (primary) hypertension; E11.9 Type 2 diabetes mellitus without complications; E03.9 Hypothyroidism, unspecified; E78.5 Hyperlipidemia, unspecified; G31.01 Pick's disease; F02.80 Dementia in other diseases classified elsewhere, unspecified severity, without behavioral disturbance, psychotic disturbance, mood disturbance, and anxiety; R29.700 NIHSS score 0; Z79.4 Long term (current) use of insulin; Z79.84 Long term (current) use of oral hypoglycemic drugs; Z79.899 Other long term (current) drug therapy; Z98.890 Other specified postprocedural states
CPT/HCPCS: 36415; 70450; 70496; 70498; 70544; 70551; 71045; 80048; 80061; 81001; 82962; 83036; 85025; 85610; 85730; 92610; 93005; 93306; 94640; 96374; 96376; 99285; G0378; J3490; Q9967; J1815